=== PATIENT | female | born 2000 | race Caucasian/White ===

== ENCOUNTER → 2020-03-02 | Outpatient (CLI) | payer BC ==
--- NOTE | 2020-03-02 15:16 | XR ---
EXAMINATION TYPE: XR abdomen 2V DATE OF EXAM: 03/02/2020 COMPARISON: NONE HISTORY: Pain TECHNIQUE: Single supine KUB image of the abdomen is obtained FINDINGS: Small bowel demonstrates no evidence for dilatation or air fluid levels. Gas and fecal material is seen in non-distended colon. No convincing evidence for pneumoperitoneum. No unusual calcifications. The lung bases are clear. Curvature lumbar spine convex to the right. IMPRESSION: 1. Overall nonobstructive bowel gas pattern.
== END | disposition home or self-care (01) ==
LOC: RADXRYALE 14:32
PROVIDERS: ATTEND Physician Assistant Medical
DX: R10.12 Left upper quadrant pain (principal); N92.6 Irregular menstruation, unspecified
CPT/HCPCS: 74019

== ENCOUNTER → 2020-03-09 | Outpatient (CLI) | payer BC ==
--- NOTE | 2020-03-09 11:08 | US ---
EXAMINATION TYPE: US pelvis complete transvag DATE OF EXAM: 03/09/2020 COMPARISON: NONE CLINICAL HISTORY: N92.6 Irregular menstration, R10.12 LUQ pain. Irregular cycles for many years, leidy ent states she gets about 3 periods a year, 0 TECHNIQUE: . Transabdominal sonographic images of the pelvis were acquired. Transvaginal sonographi c images were medically necessary to better assess the following anatomy: endometrium and ovaries Date of LMP: December 2019 EXAM MEASUREMENTS: Uterus: 6.5 x 2.5 x 4.4 cm Endometrial Stripe: right horn 0.7cm / left horn 0.6cm Right Ovary: 3.9 x 2.4 x 2.0 cm Left Ovary: not seen 1. Uterus: anteverted, appears to be bicornuate uterus, nabothian cyst seen within cervix 2. Endometrium: right and left horn endometrium appears wnl 3. Right Ovary: only seen transabdominally, measures slightly enlarged 4. Left Ovary: not seen 5. Bilateral Adnexa: wnl 6. Posterior cul-de-sac: wnl IMPRESSION: Bicornuate uterus.
== END | disposition home or self-care (01) ==
LOC: RADUSWWP 09:27
PROVIDERS: ATTEND Family Medicine
DX: N92.6 Irregular menstruation, unspecified (principal)
CPT/HCPCS: 76830; 76856

== ENCOUNTER → 2020-05-24 | Outpatient (CLI) | payer BC ==
--- NOTE | 2020-05-25 05:19 | MR ---
EXAMINATION TYPE: MR pelvis wo/w con DATE OF EXAM: 05/24/2020 COMPARISON: Pelvic ultrasound March 09, 2020 HISTORY: Abnormal US CONTRAST: Standard multiplanar, multisequence MRI departmental protocol utilizing 8.5 mL intravenous Gadavist g adolinium contrast. Uterus is retroverted and has normal size. There is bicornuate uterus. Endometrium has normal signal pattern. There is tiny amount of fluid in the cul-de-sac that could be physiologic. Bladder distends smoothly. There is 6 mm cervical cyst noted. The sacroiliac joints appear intact. There is no evidenc e of a pelvic mass. There is no evidence of ovarian mass. IMPRESSION: Tiny amount of free fluid is probably physiologic. Bicornuate uterus.
== END | disposition home or self-care (01) ==
LOC: RADMRIMAIN 11:55
PROVIDERS: ATTEND Obstetrics & Gynecology
DX: Q51.3 Bicornate uterus (principal)
CPT/HCPCS: 72197; A9585